=== PATIENT | female | born 1985 | race Caucasian/White ===

== ENCOUNTER 2017-01-10 17:27 | Outpatient (CLI) | payer MEDICAID, OTHER ==
[2017-01-10 18:54] LABS: Bacteria,Urine 2+ /HPF (Negative); Bilirubin,Urine NEG (Negative); Blood,Urine NEG (Negative); Ketones,Urine 20 mg/dL (Negative); Leukocyte Esterase,Urine SM (Negative); Mucus,Urine FEW /HPF; Nitrite,Urine NEG (Negative); Protein,Urine <15 mg/dL mg/dL (Negative); RBC,Urine < 1.0 /HPF (0.0-6.0); Urobilinogen,Urine < 2.0 mg/dL (<2.0); WBC,Urine < 1.0 /HPF (0.0-6.0)
[2017-01-10] MEDS ORDERED: LACTATED RINGERS 500 ML IV ONE (19:00)
[2017-01-10 19:13] VITALS: BP 115/75
[2017-01-10] MEDS ORDERED: LACTATED RINGERS 1,000 ML IV SCH (20:00)
== END 2017-01-10 21:10 | disposition home or self-care (01) ==
LOC: TRG 17:27
PROVIDERS: ATTEND Obstetrics & Gynecology
DX: O47.03 False labor before 37 completed weeks of gestation, third trimester (principal); Z3A.35 35 weeks gestation of pregnancy
CPT/HCPCS: 59025; 81001; 96360; 96361; J7120

== ENCOUNTER 2017-02-08 03:29 | Inpatient (IN) | payer MEDICAID ==
[2017-02-08] MEDS ORDERED: ePHEDrine SULFATE IV PRN ×2 (04:17→08:00)
[2017-02-08] MEDS ORDERED: XYLOCAINE 2% INFILTRATI ONE (04:17)
[2017-02-08] MEDS ORDERED: BRETHINE IVP PRN (04:17)
[2017-02-08] MEDS ORDERED: SUBLIMAZE IV PRN (04:17)
[2017-02-08] MEDS ORDERED: MINERAL OIL PO PRN (04:17)
[2017-02-08] MEDS ORDERED: BRETHINE SUB-Q PRN (04:17)
[2017-02-08] MEDS ORDERED: PITOCin/NS 20 UNIT/1000ML DRIP 20 UNITS/1,000 ML BAG IV SCH (05:00)
[2017-02-08 05:05] LABS: Hematocrit 37.3 % (30.3-42.9); Hemoglobin 12.7 gm/dl (10.1-14.3); Mean Corpuscular HGB Conc 34 % (30-34); Mean Corpuscular Hemoglobin 31 pg (28-32); Mean Corpuscular Volume 90 fl (79-97); Platelet Count 152 K/mm3 (140-440); Red Blood Count 4.16 M/mm3 (3.65-5.03); Red Cell Distribution Width 15.6 % (13.2-15.2); White Blood Count 11.6 K/mm3 (4.5-11.0)
[2017-02-08] MEDS: LACTATED RINGERS 1,000 ML IV SCH ×3 (05:20→07:26)
[2017-02-08] MEDS ORDERED: ePHEDrine SULFATE ONE (06:34)
--- NOTE | 2017-02-08 06:58 | Anesthesia Consultation ---
Anesthesia Consult and Med Hx Date of service: 02/08/17 - Airway Anesthetic Teeth Evaluation: Good ROM Head & Neck: Adequate Mental/Hyoid Distance: Adequate Mallampati Class: Class II Intubation Access Assessment: Probably Good - Pulmonary Exam CTA: Yes - Cardiac Exam Cardiac Exam: RRR - Pre-Operative Health Status ASA Pre-Surgery Classification: ASA2 Proposed Anesthetic Plan: Epidural - Pulmonary Hx Smoking: No Hx Asthma: No COPD: No Hx Pneumonia: No Hx Sleep Apnea: No - Cardiovascular System Hx Hypertension: No - Central Nervous System Hx Neuromuscular Disorder: Yes (Multiple sclerosis; takes lyrica, tecfidira with baby aspirin,) Hx Seizures: No Hx Psychiatric Problems: No - Endocrine Hx Renal Disease: No Hx End Stage Renal Disease: No Hx Hypothyroidism: No Hx Hyperthyroidism: No - Hematic Hx Anemia: No Hx Sickle Cell Disease: No - Other Systems Hx Alcohol Use: No Hx Cancer: No
[2017-02-08] MEDS ORDERED: fentaNYL-BUPIV 2 MCG/ML-0.125% 200 MCG/100 ML BAG EPIDURAL SCH (07:30)
[2017-02-08] MEDS ORDERED: NACL 0.9% 1000 ML 1,000 ML ONE (07:37)
--- NOTE | 2017-02-08 07:47 | History and Physical Report ---
History of Present Illness Date of examination: 02/08/17 Date of admission: 02/08/17 04:18 Chief complaint: I lost my mucous. History of present illness: 31 Y/O now 39.3 weeks presents in active labor. GBS Neg. care at [facility] [employer] since 7 weeks gestation. Past History Past Medical History: other (Multiple sclerosis) Past Surgical History: cholecystectomy, other (bladder sling) Family/Genetic History: none - Obstetrical History Expected Date of Delivery: 02/12/17 Actual Gestation: 39 Week(s) 3 Day(s) : 3 Para: 2 Hx # Term Pregnancies: 2 Medications and Allergies Allergies Allergy/AdvReac Type Severity Reaction Status Date / Time duloxetine HCl Allergy Angioedema Verified 01/03/14 15:44 [From Cymbalta] Home Medications Medication Instructions Recorded Confirmed Last Taken Type Cholecalciferol Vit D3 [Vitamin D3] 1,000 unit PO QDAY 02/08/17 02/08/17 History HYDROcodone/APAP 10-325 [[place] 1 each PO BID PRN 02/08/17 02/08/17 1 Week Ago History 10/325] Vit-Fe Fumar-FA [ 1 tab PO QDAY 02/08/17 02/08/17 02/07/17 History Vitamin] Active Meds: Active Medications Ephedrine Sulfate (Ephedrine Sulfate) 10 mg IV Q2M PRN PRN Reason: Hypotension Stop: 02/08/17 08:05 Fentanyl (Sublimaze) 100 mcg IV Q2H PRN PRN Reason: Labor Pain Last Admin: 02/08/17 05:15 Dose: 100 mcg Lactated Ringer's (Lactated Ringers) 1,000 mls @ 125 mls/hr IV DIRECT BRIELLE Last Admin: 02/08/17 07:26 Dose: 125 mls/hr Oxytocin/Sodium Chloride (Pitocin/Ns 20 Unit/1000ml Drip) 20 units in 1,000 mls @ 125 mls/hr IV DIRECT BRIELLE Fentanyl/Bupivacaine/Sodium Chlor (Fentanyl-Bupiv 2 Mcg/Ml-0.125%) 200 mcg in 100 mls @ 12 mls/hr EPIDURAL TITR BRIELLE PRN Reason: Protocol Last Admin: 02/08/17 07:32 Dose: 12 mls/hr Mineral Oil (Mineral Oil) 30 ml PO QHS PRN PRN Reason: Constipation Naloxone HCl (Narcan 2 Mg/2 Ml) 0.2 mg IV Q5M PRN PRN Reason: Respiratory sedation Stop: 02/08/17 08:11 Review of Systems All systems: negative - Vital Signs Vital signs: Vital Signs Pulse BP Pulse Ox 105 H 126/80 97 02/08/17 03:40 02/08/17 03:40 02/08/17 03:40 Temp Pulse Resp BP Pulse Ox 97.4 F L 88 20 113/76 99 02/08/17 07:27 02/08/17 07:36 02/08/17 07:27 02/08/17 07:30 02/08/17 07:36 - Physical Exam Breasts: Positive: deferred Cardiovascular: Regular rate Abdomen: Positive: soft Genitourinary (Female): Positive: normal external genitalia Vulva: both: normal Vagina: Positive: normal moisture Uterus: Positive: enlarged Adnexa: both: normal Deep Tendon Reflex Grade: Normal +2 - Obstetrical FHR: category 1 Uterine Contraction Monitor Mode: External Cervical Dilatation: 8 (arom clear) Cervical Effacement Percentage: 90 station: 0 Uterine Contraction Pattern: Regular Results Result Diagrams: 02/08/17 04:20 Abnormal lab results 02/08/17 Range/Units 04:20 WBC 11.6 H (4.5-11.0) K/mm3 RDW 15.6 H (13.2-15.2) % All other labs normal. Assessment and Plan A: Active Labor at 39 + weeks P: Expect
[2017-02-08] MEDS ORDERED: NARCAN 2 MG/2 ML IV PRN (08:00)
--- NOTE | 2017-02-08 09:35 | Procedure Note ---
OB Delivery Note - Delivery Date of Delivery: 02/08/17 Surgeon: SANDRA QUINTERO Estimated blood loss: 100cc - Vaginal Delivery presentation: vertex Delivery position: OA Intrapartum events: none Delivery induction: none Delivery augmentation: rupture of membranes Delivery monitor: external FHT, external uterine Route of delivery: Delivery placenta: spontaneous Delivery cord: 3 umbilical vessels Episiotomy: none Delivery laceration: none Anesthesia: epidural Delivery comments: of a viable female 6 #- 11 oz on 02/08/2017 @ 0915 over intact perineum. 9/9. Placenta delivered 3VCI. FF @ U. MOther and baby doing well - Infant A at 1 minute: 9 at 5 minutes: 9 Gender: Female (6-11)
[2017-02-08] MEDS ORDERED: SODIUM CHLORIDE FLUSH SYRINGE 10 ML IV PRN (10:00)
[2017-02-08] MEDS ORDERED: LANSINOH TP PRN (11:00)
[2017-02-08] MEDS ORDERED: TYLENOL PO PRN (11:00)
[2017-02-08] MEDS ORDERED: BENADRYL PO PRN (11:00)
[2017-02-08] MEDS ORDERED: TUCKS PAD TP PRN (11:00)
[2017-02-08] MEDS: MOTRIN PO SCH ×2 (13:01→19:15)
[2017-02-08] MEDS: NORCO 5/325 PO PRN ×2 (13:02→19:15)
[2017-02-08] MEDS ORDERED: BOOSTRIX IM ONE (19:34)
[2017-02-08 21:47] LABS: Hematocrit 36.9 % (30.3-42.9); Hemoglobin 12.2 gm/dl (10.1-14.3)
[2017-02-08] MEDS ORDERED: DERMOPLAST TP PRN (23:53)
[2017-02-09] MEDS: MOTRIN PO SCH ×3 (02:10→11:59)
[2017-02-09] MEDS: NORCO 5/325 PO PRN (05:27)
[2017-02-09 08:04] VITALS: BP 121/76
--- NOTE | 2017-02-09 11:06 | Progress Note ---
Assessment and Plan A: PP Day #1 Stable P: Follow Routine Orders D/C home today per patient request RTO in 6 weeks Subjective - Subjective Date of service: 02/09/17 Patient reports: appetite normal, voiding normally, pain well controlled, flatus , ambulating normally : doing well, bottle feeding Objective - Vital Signs Latest vital signs: Vital Signs Temp Pulse Resp BP 02/09/17 08:03 97.7 F 69 18 121/76 02/09/17 01:30 98.4 F 84 18 117/78 02/08/17 16:43 98.5 F 67 18 116/75 02/08/17 11:35 99.3 F 77 18 121/83 Intake and Output 02/08/17 02/09/17 02/09/17 22:59 06:59 14:59 Intake Total 360 180 Output Total 300 Balance 60 180 Intake: Oral 360 Intake, Free Water 180 Output: Urine 300 Void 300 Other: Total, Intake Amount 240 Total, Output Amount 300 # Voids Void 1 1 - Exam Breasts: Present: normal Cardiovascular: Present: Regular rate Lungs: Present: Clear to auscultation, Normal air movement Abdomen: Present: normal appearance, soft, normal bowel sounds Uterus: Present: normal, firm, fundal height below umbilicus Extremities: Present: normal
--- NOTE | 2017-02-09 11:07 | Discharge Summary ---
Providers - Providers Date of Admission: 02/08/17 04:18 Date of discharge: 02/09/17 Attending physician: MARCELINO MILLER MD Primary care physician: MARCELINO MILLER MD Hospitalization Reason for admission: active labor Delivery: Episiotomy: none Laceration: none Other procedures: none complications: none Discharge diagnosis: IUP at term delivered [place] baby: female Condition at discharge: Good Disposition: DC-01 TO HOME OR SELFCARE Plan - Provider Discharge Summary Activity: routine, no sex for 6 weeks, no heavy lifting 4 weeks, no strenuous exercise Diet: routine Instructions: routine Additional instructions: [] Smoking cessation referral if applicable(refer to patient education folder for contact #) [] Refer to [facility]'s [facility] Booklet Call your doctor immediately for: * Fever > 100.5 * Heavy vaginal bleeding ( >1 pad per hour) * Severe persistent headache * Shortness of breath * Reddened, hot, painful area to leg or breast * Drainage or odor from incision. * Keep incision clean and dry at all times and follow doctor's instructions regarding bathing/showering - Follow up plan Follow up: SANDRA QUINTERO CNM [Advanced Practice Nurse] - 6 Weeks
== END 2017-02-09 15:35 | disposition home or self-care (01) | DRG 775 ==
LOC: TRG 03:29 → LD 04:18 → OB 12:06
PROVIDERS: ADMIT Obstetrics & Gynecology; ATTEND Obstetrics & Gynecology
PROC: 10E0XZZ Delivery of Products of Conception, External Approach (ICD-10-PCS; principal; 2017-02-08)
PROC: 3E0S3CZ (ICD-10-PCS; 2017-02-08)
PROC: 00HU33Z Insertion of Infusion Device into Spinal Canal, Percutaneous Approach (ICD-10-PCS; 2017-02-08)
DX: O99.354 Diseases of the nervous system complicating childbirth (principal); Z3A.39 39 weeks gestation of pregnancy; Z37.0 Single live birth; G35 Multiple sclerosis; Z90.49 Acquired absence of other specified parts of digestive tract; Z88.8 Allergy status to other drugs, medicaments and biological substances
CPT/HCPCS: 36415; 85014; 85018; 85027; 86850; 86900; 86901; 90471; 90715; J2590; J3010; J7030; J7120

== ENCOUNTER 2017-03-11 15:52 | Outpatient (CLI) | payer MEDICAID ==
--- NOTE | 2017-03-12 07:59 | Magnetic Resonance Report ---
MRI THORACIC SPINE WITHOUT AND WITH CONTRAST: 03/11/17 00:00:00 CLINICAL: Multiple sclerosis. TECHNIQUE: Sagittal and axial T1 and T2, and sagittal STIR sequences plus sagittal and axial T1 fat-sat postcontrast sequences on a 1.5 Rosy magnet. 14.0 cc of Multihance was injected intravenously for contrast portion of the exam and consent was obtained prior to the administration of contrast. FINDINGS: Normal vertebral body height, alignment and disk spaces. The spinal cord is normal size with normal signal. No mass or enhancing lesion of the cord. Normal marrow signal and normal disk signal. The conus medullaris is normal and terminates at L1. The disks are intact at all levels. No disk protrusions or bulges. IMPRESSION: Normal study.
--- NOTE | 2017-03-12 14:54 | Magnetic Resonance Report ---
MR CERVICAL SPINE WITH AND WITHOUT CONTRAST HISTORY: Sclerosis. TECHNIQUE: Multisequence, multiplanar MRI before and after IV gadolinium. FINDINGS: The cervical spinal cord is normal size and signal intensity. No abnormal intramedullary signal or enhancement. No central canal stenosis. The cervical vertebral bodies, disc spaces, posterior elements, neural foramen and paraspinal soft tissues are unremarkable. No abnormal enhancement following IV gadolinium. IMPRESSION: Cervical spine within normal limits. No findings to suggest acute or chronic multiple sclerosis.
== END 2017-03-11 15:53 | disposition home or self-care (01) ==
LOC: MRI 15:52
PROVIDERS: ATTEND Psychiatry & Neurology Neurology
DX: G35 Multiple sclerosis (principal)
CPT/HCPCS: 72156; 72157; A9577